=== PATIENT | female | born 1975 | race Caucasian/White ===

== ENCOUNTER 2019-03-22 06:34 | Day surgery (SDC) | payer BC ==
[2019-03-21 11:07] VITALS: BMI 26.1
--- NOTE | 2019-03-21 13:43 | P.HPOB ---
History of Present Illness H&P Date: 03/21/19 Chief Complaint: Right ovarian cyst, Pelvic pain This is a 44 y.o. female, 2, para 2, who presents for laparoscopy, drainage of right ovarian cyst, possible right oophorectomy due to pelvic pain. She complains of intermittent stabbing pain in right lower quadrant and pelvic pressure for at least a year. Episodes are occuring at least monthly and last a couple days. Ultrasound showed right ovary enlarged to 7.8 x 4.9 x 7 cm with a persistent 7 x 4.5 x 5.9 cm thin-wallled cyst. No suspicious nodularity or thickened septa are noted. Left ovary appears normal. Uterus appears normal. OB Hx: . History of 2 deliveries. 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 History of tubal ligation and endometrial ablation- 2008. Same partner since 2018. Social Hx: . 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 Review of Systems Constitutional: Reports night sweats, Denies chills, Denies fever Eyes: denies blurred vision, denies pain Ears, nose, mouth and throat: Denies headache, Denies sore throat Respiratory: Denies cough Gastrointestinal: Reports bloating (cyclical), Reports constipation (with cycle) Genitourinary: Reports dysmenorrhea, Reports pelvic pain, Denies dysuria, Denies hematuria Menstruation: Reports amenorrhea Musculoskeletal: Denies myalgias Integumentary: Denies pruritus, Denies rash Neurological: Denies numbness, Denies weakness Psychiatric: Reports anxiety, Reports change in libido, Reports change in sleep habits Endocrine: Reports flushing Past Medical History Additional Past Medical History / Comment(s): RESTLESS LEG SYNDROME , History of Any Multi-Drug Resistant Organisms: None Reported Past Surgical History: Adenoidectomy, Section (x2), Orthopedic Surgery (R. wrist reconstruction), Tonsillectomy, Tubal Ligation (2007), Uterine Ablation (2008) Past Anesthesia/Blood Transfusion Reactions: Postoperative Nausea & Vomiting (PONV) Past Psychological History: Anxiety, Depression Smoking Status: Current some day smoker Past Alcohol Use History: Occasional Past Drug Use History: None Reported - Past Family History Mother Family Medical History: Thyroid Disorder Additional Family Medical History / Comment(s): Heart disease Medications and Allergies Home Medications Medication Instructions Recorded Confirmed Type Carbidopa-Levodopa 25-100 mg 1 tab PO HS 03/21/19 03/22/19 History [Sinemet 25-100 mg] FLUoxetine HCL [PROzac] 10 mg PO HS 03/21/19 03/22/19 History Allergies Allergy/AdvReac Type Severity Reaction Status Date / Time No Known Allergies Allergy Verified 03/21/19 10:23 Exam Osteopathic Statement: *. No significant issues noted on an osteopathic structural exam other than those noted in the History and Physical/Consult. Intake and Output 03/20/19 03/21/19 03/21/19 22:59 06:59 14:59 Other: Weight 65.771 kg HEENT: within normal limits Heart: regular rate and rhythm Lungs: clear to auscultation bilaterally Abdomen: soft, non-tender Pelvic: uterus anteverted, non-tender, fullness palpated in R. adnexa, sl. tender Extremities: negative Homans Assessment and Plan (1) Right ovarian cyst Current Visit: No Status: Acute Code(s): N83.201 - UNSPECIFIED OVARIAN CYST, RIGHT SIDE SNOMED Code(s): 47968521 (2) Pelvic pain Current Visit: No Status: Acute Code(s): R10.2 - PELVIC AND PERINEAL PAIN SNOMED Code(s): 71531782 Plan: Proceed with laparoscopy, drainage of right ovarian cyst, possible right ooophorectomy. I have discussed the risks, benefits, and alternative therapies for the above- mentioned procedure and for both sedation/anesthesia as well as necessary blood products administration, if indicated, as they pertain to this patient. The patient has indicated her understanding and acceptance of the risks and procedures discussed.
[~2019-03-22 06:34] MED LIST: LACTATED RINGERS 1,000 ML IV SCH; Pre Op ABX Message 1 EACH MISC MISCELLANE ONE
[2019-03-22] MEDS ORDERED: LIDOCAINE 1% 20 ML VIAL (10MG/ML) FOR IV START INTRADERMA ONE (06:56)
[2019-03-22] MEDS: ONDANSETRON 4 MG/2 ML VIAL IVP ONE ×2 (06:57→09:05)
[2019-03-22] MEDS ORDERED: DEXAMETHASONE SOD PHOSPHATE 4 MG/ML 1 ML VIAL IVP ONE (06:57)
[2019-03-22] MEDS ORDERED: SCOPOLAMINE 1.5MG/72HR PATCH TRANSDERM ONE (06:58)
[2019-03-22] MEDS ORDERED: SUCCINYLCHOLINE CHLORIDE 100 MG/5 ML SYR IV ONE (07:25)
[2019-03-22] MEDS ORDERED: LIDOCAINE 1% INJ 10MG/ML (20 ML MDV) ONE (07:25)
[2019-03-22] MEDS ORDERED: GLYCOPYRROLATE 0.2 MG/ML 2 ML VIAL ONE (07:25)
[2019-03-22] MEDS ORDERED: ePHEDrine SULFATE/0.9% NACL/PF 50 MG/5 ML SYRINGE IV ONE (07:25)
[2019-03-22] MEDS ORDERED: PROPOFOL 10 MG/ML 20 ML VIAL IV ONE (07:25)
[2019-03-22] MEDS ORDERED: MIDAZOLAM 2 MG/2 ML VIAL ONE (07:25)
[2019-03-22] MEDS ORDERED: NEOSTIGMINE 1 MG/ML 10 ML VIAL ONE (07:25)
[2019-03-22] MEDS ORDERED: BUPIVACAINE (PF) 0.25% 30 ML VIAL SQ ONE ×2 (07:31→08:19)
[2019-03-22] MEDS ORDERED: LACTATED RINGERS 1,000 ML IV ONE (08:22)
--- NOTE | 2019-03-22 08:26 | P.OP ---
Date of Procedure: 03/22/19 Preoperative Diagnosis: Large right ovarian cyst Pelvic pain Postoperative Diagnosis: Right paratubal cyst Procedure(s) Performed: Laparoscopy with drainage of right paratubal cyst Anesthesia: MADI Surgeon: Elodia Hester Estimated Blood Loss (ml): 5 Pathology: none sent Condition: stable Disposition: same day Indications for Procedure: This is a 44 y.o. female, 2, para 2, who presents for laparoscopy, drainage of right ovarian cyst, possible right oophorectomy due to pelvic pain. She complains of intermittent stabbing pain in right lower quadrant and pelvic pressure for at least a year. Episodes are occuring at least monthly and last a couple days. Ultrasound showed right ovary enlarged to 7.8 x 4.9 x 7 cm with a persistent 7 x 4.5 x 5.9 cm thin-wallled cyst. No suspicious nodularity or thickened septa are noted. Left ovary appears normal. Uterus appears normal. Operative Findings: Upon laparoscopy, a normal uterus and bilateral ovaries are noted. There is evidence of previous tubal ligation on both sides. There is a fairly large right her tubal cyst on the distal end of the right fallopian tube and this is slightly adherent to bowel. Approximately 90 mL of clear fluid are drained from the right paratubal cyst. Description of Procedure: The patient is taken to the operating room where she is placed in the dorsal lithotomy position. She is prepped and draped in the normal sterile fashion. Her bladder is drained with a catheter. Examination is performed under anesthesia. Uterus is found to be anteverted with some fullness felt in the right adnexa. Next a bivalve speculum was placed in the patient's vagina. A single-tooth tenaculum is used to grasp the anterior lip of the cervix. Cervical os is noted to be stenotic. Cervix is gently dilated with Perez dilators until a sound could be passed. Uterus is sounded to the clinic a half centimeters. A kroner uterine manipulator is inserted through the cervix and the balloon is inflated. Single-tooth tenaculum and speculum are removed. Gloves are changed and attention is turned to the abdomen. A towel clip was placed above the umbilicus for retraction. A small stab incision was made in the infraumbilical fold. A 5 mm disposable bladeless trocar was inserted under direct visualization into the peritoneal cavity. Once inside, pneumoperitoneum was achieved with CO2 gas. The insert was removed and the camera was replaced. Intraperitoneal placement is confirmed and no bleeding is noted. Next a small stab incision was made suprapubically and a 5 mm disposable bladeless trocar was inserted under direct visualization. Next a probe was inserted and the pelvic contents were inspected. Both ovaries appear normal and small. Uterus is normal and small. There is noted to be the distal end of the right fallopian tube that is very distended and attached to bowel on the right side. The appendix is visualized and appears normal also. An aspirating needle is placed through the inferior trocar and a small stab incision is made into the paratubal cyst. Over 90 mL of clear fluid are drained off of the cyst. The fluid is discarded. The cyst resolved. Pictures are taken. Next the inferior trocar is removed and no bleeding is noted. Pneumoperitoneum is released and then the upper trocar is removed. Skin incisions are closed with 4-0 undyed Vicryl suture in subcuticular fashion. The inferior incision was also closed with one interrupted stitch for hemostasis. Incision sites are injected with quarter percent Marcaine. Approximately 7 mL were used. Next the kroner uterine manipulator is removed. Minimal bleeding is noted. All sponge and needle counts are correct. The patient is taken to recovery room in stable condition.
[2019-03-22] MEDS: HYDROmorphone 0.5 MG/0.5 ML SYRINGE IVP ONE ×2 (08:38→09:05)
[2019-03-22 08:41] VITALS: TEMP 97.2
[2019-03-22] MEDS ORDERED: HYDROcodone/APAP 5-325MG 1 EACH TAB PO ONE (09:31)
[2019-03-22 09:39] VITALS: BP 122/74; RESP 18
[2019-03-22 10:09] VITALS: PULSE 77
== END 2019-03-22 10:09 | disposition home or self-care (01) ==
LOC: OR 06:34
PROVIDERS: ATTEND Obstetrics & Gynecology
DX: N83.8 Other noninflammatory disorders of ovary, fallopian tube and broad ligament (principal); N83.201 Unspecified ovarian cyst, right side; G25.81 Restless legs syndrome; F41.9 Anxiety disorder, unspecified; F32.9 Major depressive disorder, single episode, unspecified; F17.200 Nicotine dependence, unspecified, uncomplicated; Z90.89 Acquired absence of other organs; Z98.51 Tubal ligation status; Z98.891 History of uterine scar from previous surgery; Z82.49 Family history of ischemic heart disease and other diseases of the circulatory system; Z79.899 Other long term (current) drug therapy
CPT/HCPCS: 81025; 49322; J2250; J1100; J2710; J2405; J2001; J0330; J2704; J1170